=== PATIENT | female | born 1950 | race American Indian/Alaskan Native ===

== ENCOUNTER 2020-12-31 07:37 | Day surgery (SDC) | payer MEDICARE, MEDICAID ==
[~2020-12-31] VITALS: Ht 152.4 cm; Wt 63.3 kg
[2020-12-31] VITALS (9 sets, daily range): BP systolic 121–149; BP diastolic 65–84
[~2020-12-31 07:37] MED LIST: ALBU8.5H8 IH; AMLO10TA13 PO; ASCO-134 PO; ASPI-920 PO; ATOR10TA87 PO; CETI10TA15 PO; DEXL60CA3 PO; DONE-46 PO; DULA1.5P SQ; EMPA10TA PO; FAMO20TA8 PO; FERR325T35 PO; MULT-1085 PO; PARO30TA4 PO; VALS160T30 PO
[2020-12-31] MEDS ORDERED: albumin 25% 100mL bottle x 1 IV PRN (08:20)
== END 2020-12-31 11:51 ==
LOC: SSTAY O 07:37
PROVIDERS: ATTEND Radiology Diagnostic Radiology
DX: R18.8 Other ascites (principal); R14.0 Abdominal distension (gaseous); E78.5 Hyperlipidemia, unspecified; K74.60 Unspecified cirrhosis of liver; E11.22 Type 2 diabetes mellitus with diabetic chronic kidney disease; I13.0 Hypertensive heart and chronic kidney disease with heart failure and stage 1 through stage 4 chronic kidney disease, or unspecified chronic kidney disease; N18.9 Chronic kidney disease, unspecified; I50.30 Unspecified diastolic (congestive) heart failure; F03.90 Unspecified dementia, unspecified severity, without behavioral disturbance, psychotic disturbance, mood disturbance, and anxiety; Z79.899 Other long term (current) drug therapy
CPT/HCPCS: 49083; P9047